=== PATIENT | female | born 1940 | race Caucasian/White ===

== ENCOUNTER 2023-09-18 08:29 | Outpatient (CLI) | payer MEDICARE ==
[~2023-09-18] VITALS: Ht 154.9 cm; Wt 55.4 kg
[2023-09-18 09:23] VITALS: BP 141/69; PULSE 99; TEMP 98.6
[2023-09-18] MEDS ORDERED: NORVASC 5MG5 MG/TAB PO (09:33)
[2023-09-18] MEDS ORDERED: ZETIA 10MG TAB10 MG PO (09:33)
[2023-09-18] MEDS ORDERED: DECADRON 4MG TAB4 MG PO (09:33)
[2023-09-18] MEDS ORDERED: LASIX 40MG TABL40 MG PO (09:34)
[2023-09-18] MEDS ORDERED: CALCIUM 600MG+D1 TAB PO (09:35)
[2023-09-18] MEDS ORDERED: PRILOSEC 20MG20 MG PO (09:35)
[2023-09-18] MEDS ORDERED: EPA FISH OIL1 SGL PO (09:36)
[2023-09-18] MEDS ORDERED: MASON NATURAL2000 IU PO (09:36)
[2023-09-18] MEDS ORDERED: PRESERVISION A1 EAC3 PO (09:36)
[2023-09-18] MEDS ORDERED: VITAMINC1000TA PO (09:37)
[2023-09-18] MEDS ORDERED: PHARMASSURE ZIN50 MG PO (09:38)
[2023-09-18] MEDS ORDERED: BORTEZOMIB1 MG SQ (09:38)
[2023-09-18 10:49] VITALS: BP 135/64; PULSE 100
--- NOTE | 2023-09-18 10:50 | NUR ---
Refer to [facility] Report for procedural sedation/notes
[2023-09-18 11:30] VITALS: BP 154/70; PULSE 100
--- NOTE | 2023-09-18 11:40 | NUR ---
Dr Platt verifies that pt can be discharged at any time as she was not given sedation for procedure, and is going to report to [place] for dialasis this afternoon. Pt assisted up to restroom. Gait steady.
[2023-09-18 11:45] VITALS: BP 162/74; PULSE 100
--- NOTE | 2023-09-18 11:59 | NUR ---
DC instructions reviewed with pt and sister. Both express understanding. Pt is steady on feet. She had 2 glasses of water, denied desire for food stating they will go to merchandise pickup/receiving associate lunch. They plan to go to dialysis in [place] following lunch. Dressing has slight shadowing of blood under uppermost gauze pad, but has not soaked through. Offer to change dressing prior to DC. Pt states she would rather wait to have it changed at dialysis. IV DC'd, site wrapped with coban. She refuses wheelchair. She and sister are escorted out to elevator with belongings.
== END 2023-09-18 12:05 | disposition home or self-care (01) ==
LOC: COL.CAR 08:29
DX: T82.41XA Breakdown (mechanical) of vascular dialysis catheter, initial encounter (principal); Z87.891 Personal history of nicotine dependence; Y84.1 Kidney dialysis as the cause of abnormal reaction of the patient, or of later complication, without mention of misadventure at the time of the procedure
CPT/HCPCS: C1769; J1644

== ENCOUNTER 2024-04-28 10:38 | Day surgery (SDC) | payer MEDICARE ==
[~2024-04-28] VITALS: Ht 154.9 cm; Wt 51.7 kg
[~2024-04-28 10:38] MED LIST: BORTEZOMIB1 MG SQ; CALCIUM 600MG+D1 TAB PO; DECADRON 4MG TAB4 MG PO; EPA FISH OIL1 SGL PO; LASIX 40MG TABL40 MG PO; LR 1,000 ML IV SCH; Lidocaine PF 2% (20 MG/ML) 5 ML VIAL ONE; MASON NATURAL2000 IU PO; NORVASC 5MG5 MG/TAB PO; NS 10 ML IV ONE; Ondansetron 4 MG/2 ML VIAL ONE; PHARMASSURE ZIN50 MG PO; PRESERVISION A1 EAC3 PO; PRILOSEC 20MG20 MG PO; Rocuronium 50 MG/5 ML Multi-Dose VIAL ONE; Scopolamine 1 MG Delivered 3-Day PATCH TD SCH; Succinylcholine PF 200 MG/10 ML SYRINGE IV ONE; VITAMINC1000TA PO; ZETIA 10MG TAB10 MG PO; fentaNYL 50 MCG/ML 2 ML VIAL ONE
[2024-04-28] MEDS ORDERED: Ondansetron 4 MG/2 ML VIAL IV PRN ×2 (10:45→13:45)
[2024-04-28] MEDS ORDERED: Morphine 2 MG/1 ML VIAL [PACU/SDC ONLY] IV PRN (10:45)
[2024-04-28] MEDS ORDERED: fentaNYL 50 MCG/ML 1 ML SYRINGE/VIAL [PACU/SDC ONLY] IV PRN (10:45)
[2024-04-28] MEDS ORDERED: HYDROmorphone 1 MG/1 ML SYRINGE [PACU/SDC ONLY] IV PRN (10:45)
[2024-04-28 11:53] LABS: CALCIUM 9.8 mg/dL (8.4-10.2); CREATININE, serum 3.63 mg/dL (0.57-1.11); POTASSIUM 3.7 mEq/L (3.5-4.5)
[2024-04-28] MEDS ORDERED: PRESERVISION A1 EAC3 PO (12:00)
[2024-04-28 12:46] VITALS: BP 147/66; PULSE 102; TEMP 98.1
[2024-04-28] MEDS ORDERED: Topical Skin Adhesive 1 EACH (1 ML) TOP ONE (13:30)
[2024-04-28] MEDS ORDERED: Acetaminophen 325 MG TAB PO PRN (13:45)
[2024-04-28 14:10] VITALS: BP 136/67; PULSE 96; TEMP 97.5
--- NOTE | 2024-04-28 14:10 | NUR ---
PATIENT RETURNED TO [facility] VIA CART, ALERT AND ORIENTED X3. STATES ABDOMEN IS "SORE", DENIES PAIN. DENIES NAUSEA AND SHORTNESS OF BREATH. BREATHING REGULAR AND UNLABORED ON ROOM AIR. SKIN WARM AND DRY. NURSE HANDOFF COMPLETED IN ROOM WITH INSPECTION OF SURGICAL DRESSINGS/SITES. VISIBLE MEDIPORE DRESSING TO RIGHT UPPER CHEST WITH MINIMAL OLD DRAINAGE (DRY AND INTACT). 3 ABDOMINAL SURGICAL SITES WITH SKIN GLUE CLOSURE CLEAN, DRY AND INTACT. VISIBLE MEDIPORE TAPE OVER PERITONEAL DIALYSIS CATHETER SITE (DRESSING CLEAN, DRY AND INTACT). PATIENT HAS NO COMPLAINTS. PATIENT HAD WATER AND VANILLA PUDDING, BOTH FOOD AND DRINK TOLERATED WELL WITH NO DYSPHAGIA. CALL LIGHT IN REACH. SISTER, ZION, PRESENT IN ROOM.
[2024-04-28 14:15] VITALS: BP 150/52; PULSE 54
[2024-04-28 14:28] VITALS: TEMP 97.8
[2024-04-28 14:30] VITALS: BP 136/59; PULSE 89
[2024-04-28 14:44] VITALS: BP 132/52; PULSE 97
--- NOTE | 2024-04-28 14:55 | NUR ---
1443: DISCHARGE TEACHING COMPLETED WITH PRINTED EDUCATION AND INSTRUCTIONS SENT HOME WITH PATIENT. PATIENT AND ZION VERBALIZED UNDERSTANDING. EXTRA DRESSING SUPPLIES SENT HOME WITH PATIENT. 1445: PATIENT DENIES PAIN AND NAUSEA. 3 ABDOMINAL SURGICAL SITES WITH SKIN GLUE CLOSURE CLEAN, DRY AND INTACT. RIGHT UPPER CHEST DRESSING CLEAN, DRY AND INTACT. PERITONEAL DIALYSIS CATHETER DRESSING CLEAN, DRY AND INTACT. RIGHT HAND IV REMOVED. GAUZE AND COBAN PLACED OVER SITE. 1455: PATIENT DISCHARGED HOME WITH [facility].
== END 2024-04-28 14:55 | disposition home or self-care (01) ==
LOC: SDCO 10:38
PROVIDERS: Surgery
DX: N18.6 End stage renal disease (principal)
CPT/HCPCS: C1750; J0690; J2405; J2704; J3010; J7120